=== PATIENT | female | born 2000 | race Hispanic/Latino ===

== ENCOUNTER 2022-01-12 20:09 | Emergency (ER) | payer OTHER, MEDICAID ==
[~2022-01-12] VITALS: Ht 165.1 cm; Wt 99.8 kg
[~2022-01-12 20:09] MED LIST: PREN-196 PO
[2022-01-12] MEDS ORDERED: KETOROLAC 60 MG VIAL (30MG/ML) IM ONE (23:00)
[2022-01-12] MEDS ORDERED: ORPHENADRINE CITRATE 30 MG/ML ML IM ONE (23:00)
[2022-01-13] MEDS ORDERED: CYCL-309 PO (01:08)
[2022-01-13] MEDS ORDERED: MELO7.5T12 PO (01:08)
[2022-01-13] MEDS ORDERED: LIDOP TP (01:08)
[2022-01-13 01:20] VITALS: BP 124/68
== END 2022-01-13 01:30 | disposition home or self-care (01) ==
LOC: EDH 20:09
DX: S29.012A Strain of muscle and tendon of back wall of thorax, initial encounter (principal); M54.2 Cervicalgia; Z79.899 Other long term (current) drug therapy; V49.49XA Driver injured in collision with other motor vehicles in traffic accident, initial encounter; Y93.89 Activity, other specified; Y92.413 State road as the place of occurrence of the external cause; Y99.8 Other external cause status
CPT/HCPCS: 36415; 70450; 72125; 84703; 96372 ×2; 99284; J1885; J2360